=== PATIENT | male | born 1985 | race Two or more races ===

== ENCOUNTER 2021-11-11 13:09 | Emergency (ER) | payer MEDICAID ==
[~2021-11-11] VITALS: Ht 177.8 cm; Wt 89.4 kg
[2021-11-11 17:40] VITALS: BP 126/84
[2021-11-11] MEDS ORDERED: IBUP800T27 PO (17:43)
== END 2021-11-11 17:47 | disposition home or self-care (01) ==
LOC: ER 13:09
DX: S63.501A Unspecified sprain of right wrist, initial encounter (principal); Z79.1 Long term (current) use of non-steroidal anti-inflammatories (NSAID); W17.89XA Other fall from one level to another, initial encounter; Y93.89 Activity, other specified; Y92.89 Other specified places as the place of occurrence of the external cause; Y99.8 Other external cause status
CPT/HCPCS: 29125; 73110